=== PATIENT | male | born 1985 | race Caucasian/White ===

== ENCOUNTER 2024-07-05 12:33 | Emergency (ER) | payer SELFPAY ==
[2024-07-05 12:35] VITALS: BP 131/95; BMI 29.6
[2024-07-05 12:36] VITALS: BP 131/95
[2024-07-05 12:54] LABS: % Basophils 0.4 % (0-2); % Eosinophils 0.9 % (0-6); % Immature Granulocytes 0.3 % (0-0.5); % Lymphocytes 13.3 % (20.5-51.1); % Monocytes 6.7 % (1.7-9.3); % Neutrophils 78.4 % (42.2-75.2); Absolute Basophils 0.1 10^3/uL (0-0.2); Absolute Eosinophils 0.1 10^3/uL (0-0.7); Absolute Lymphocytes 1.5 10^3/uL (1.2-3.4); Absolute Monocytes 0.7 10^3/uL (0.1-0.6); Absolute Neutrophils 8.7 10^3/uL (1.4-6.5); Hematocrit 45.1 % (39.0-52.0); Hemoglobin 15.7 g/dL (13.0-18.0); Mean Corp Hgb Conc. 34.8 g/dL (33.0-37.0); Mean Corpuscular Hgb 32.7 pg (27.0-31.0); Mean Platelet Volume 10.1 fL (7.4-10.4); Nucleated Red Blood Cells % 0 % (-); Platelet Count 209 10^3/uL (130-400); Red Cell Dist. Width 12.9 % (11.5-14.5); White Blood Cell Count 11.1 10^3/uL (4.8-10.8)
--- NOTE | 2024-07-05 12:57 | ED.GENMED ---
History of Present Illness
General
Chief Complaint: Alcohol Problem
Source: patient
Exam Limitations: none
Time Seen by Provider: 07/05/24 12:49
History of Present Illness
History of Present Illness:
See MDM
Past History
Past History
ED Past Medical History: None
ED Past Surgical History: None
Social History
Tobacco: Non-smoker
Alcohol: Daily
Living: with family
Employment: Employed
Phy Exam
Physical Exam
Physical Exam:
See MDM
Scores
Withdrawal Assessment of Alcohol
Withdrawal Assessment Completed?: Not applicable
Course
Orders/Labs/Results
Orders:
Orders
07/05/24 12:46
Alcohol Urgent
Complete Blood Count/With Diff Urgent
Comprehensive Metabolic Panel Urgent
Magnesium Urgent
07/05/24 12:57
Lorazepam [Ativan] 1 mg PO NOW STA
Abnormal Lab Results
07/05/24
12:46
WBC 11.1 H 10^3/uL
(4.8-10.8)
MCH 32.7 H pg
(27.0-31.0)
Absolute Neuts (auto) 8.7 H 10^3/uL
(1.4-6.5)
Absolute Monos (auto) 0.7 H 10^3/uL
(0.1-0.6)
Neutrophils % 78.4 H %
(42.2-75.2)
Lymphocytes % 13.3 L %
(20.5-51.1)
BUN 6 L mg/dl
(9-20)
07/05/24 12:46
07/05/24 12:46
Vital Signs
Initial and Last Documented VS:
Initial Vital Signs
Temp Pulse Resp BP Pulse Ox
97.8 F 75 19 131/95 98
07/05/24 12:35 07/05/24 12:35 07/05/24 12:35 07/05/24 12:35 07/05/24 12:35
Last Documented Vital Signs
Temp Pulse Resp BP Pulse Ox
97.6 F 80 13 131/95 99
07/05/24 15:00 07/05/24 12:45 07/05/24 12:45 07/05/24 12:36 07/05/24 12:45
MDM/Problems Addressed
Differential Diagnosis Includes:
HPI and MDM Narrative:
38-year-old male presenting for evaluation of alcohol use disorder. After quitting his job recently, patient realized that he has been drinking more frequently throughout the day. He recognizes that he is not on the correct path and came to the
hospital for treatment options. Though admits to mild anxiety, he does not appear to be going through withdrawal. Will have BECARES evaluate to discuss outpatient versus inpatient options
Physical exam
General: Well appearing and non-toxic
HEENT: protecting airway
Neck: appears supple
CV: No evidence of cyanosis
Resp: No accessory muscle use
Abd: Non-distended
Extremities: No deformities
Neuro: alert. No focal motor deficits
Psych: Mildly anxious but calm and cooperative
Skin: Intact
Problems Addressed including Acute and Chronic Conditions affecting care:
1. Alcohol use disorder
Acuity: acute
Prognosis: stable
Details: Will give dose of Ativan for mild anxiety. Will have BECARES evaluate to discuss treatment options
Updates
BECARES evaluated patient and set up transfer to inpatient rehab. Patient otherwise medically stable
Differential Diagnosis (but not limited to): Alcohol use disorder, anxiety
Testing considered: UDS
Drug therapy (if applicable): OTC meds, please see d/c instruction regarding Rx drugs
Amount and/or Complexity of Data Reviewed
Clinical info obtained from: Patient
External data reviewed: N/A
Labs I independently reviewed (but not limited to): Mild leukocytosis but likely reactive
Radiology: N/A
Pulse Ox: not hypoxic
EKG independently reviewed: N/A
Siding Mechanic: N/A
Critical Care: N/A
Risk of Complication:
Social Determinants of health: Good social support
Discussed with other providers: BRANDAN
Escalation of Care includes Admit/Obs: Patient medically stable for transfer to rehab
Occasional wrong word or 'sound a like' substitutions may have occurred due to the inherent limitations of voice recognition software. Read the chart carefully and recognize, using context, where substitutions have occurred.
*Critical Care Note
Total Time (30-74mins, 75-104mins- exclusive of procedures): Not Applicable
ED Attending Note
-
Portions of this chart may have been created with voice recognition software.� Occasional wrong word or��sound alike� substitutions may have occurred due to the inherent limitations of voice recognition software.
Discharge Plan
Departure
Patient Disposition: Home (Routine Discharge)
Date of Disposition: 07/05/24
Time of Disposition: 15:13
Patient with high blood pressure during this ER visit?: No
Discharge Problem:
Alcohol use disorder
Prescriptions:
No Action
No Current Medications
0
Referrals:
NONE,* [Family Provider] -
Activity Restrictions/Additional Instructions:
Stanislav Blancas is medically cleared and stable for transfer to rehab
Interventions
Interventions:
*Risk Screen - Suicide Last Done: 07/05/24 12:35
*General Assessment Last Done: 07/05/24 12:35
*Neglect/Abuse Screening Last Done: 07/05/24 12:35
*ED- Fall Risk Assessment Last Done: 07/05/24 12:35
*ED COVID-19 Vaccine History Last Done: 07/05/24 12:35
ED- Neurological Assessment Last Done: 07/05/24 12:35
ED-Psychological Assessment Last Done: 07/05/24 12:35
Discharge Date and Time
Print Language: SAMMARINESE
[2024-07-05 13:16] LABS: ALT (SGPT) 37 U/L (0-50); AST (SGOT) 27 U/L (17-59); Albumin 4.5 g/dl (3.5-5.0); Alkaline Phosphatase 69 U/L (38-126); Blood Urea Nitrogen 6 mg/dl (9-20); Calcium 9.7 mg/dl (8.4-10.2); Carbon Dioxide 25 mmol/L (22-30); Chloride 102 mmol/L (98-107); Estimated Creatinine Clearance > 125 ml/min; Glucose 79 mg/dl (70-99); Magnesium 1.9 mg/dl (1.6-2.3); Potassium 4.9 mmol/L (3.5-5.1); Sodium 135 mmol/L (135-145); Total Bilirubin 0.8 mg/dl (0.2-1.3); Total Protein 7.3 g/dl (6.3-8.2); eGFR > 60.00
[2024-07-05 13:17] LABS: Alcohol None Detected
[2024-07-05] MEDS: ATIVAN 1 MG PO (13:47)
== END 2024-07-05 15:42 | disposition home or self-care (01) ==
LOC: EMR 12:33
PROVIDERS: Emergency Medicine; EMERGENCY PHYSICIAN Student in an Organized Health Care Education/Training Program
DX: F10.10 Alcohol abuse, uncomplicated (principal)
CPT/HCPCS: 99283; 80053; 82077; 83735; 85025